=== PATIENT | female | born 1950 | race Caucasian/White ===

== ENCOUNTER 2017-11-10 17:30 | Outpatient (CLI) | payer MEDICARE | END 2017-11-10 17:31 | disposition home or self-care (01) | LOC: SLEEPLAB 17:30 | PROVIDERS: ATTEND Nurse Practitioner Family | DX: G47.33 Obstructive sleep apnea (adult) (pediatric) (principal); R53.83 Other fatigue; R09.89 Other specified symptoms and signs involving the circulatory and respiratory systems; E66.9 Obesity, unspecified; K21.9 Gastro-esophageal reflux disease without esophagitis; J44.9 Chronic obstructive pulmonary disease, unspecified; I10 Essential (primary) hypertension; I25.10 Atherosclerotic heart disease of native coronary artery without angina pectoris; E11.9 Type 2 diabetes mellitus without complications; F32.9 Major depressive disorder, single episode, unspecified; F41.9 Anxiety disorder, unspecified; R09.02 Hypoxemia | CPT/HCPCS: 95806 ==

== ENCOUNTER 2018-02-04 10:33 | Outpatient (CLI) | payer MEDICARE | END 2018-02-04 10:34 | disposition home or self-care (01) | LOC: BICMAMMO 10:33 | PROVIDERS: ATTEND Nurse Practitioner Family | DX: Z78.0 Asymptomatic menopausal state (principal); E55.9 Vitamin D deficiency, unspecified | CPT/HCPCS: 77080 ==

== ENCOUNTER 2018-02-15 13:20 | Outpatient (CLI) | payer MEDICARE ==
--- NOTE | 2018-02-15 14:25 | CT ---
HIGH RESOLUTION CT PULMONARY LUNG SCAN: Date: 02/15/18 HISTORY: Personal history of nicotine dependence. Patient has been a smoker for 50+ years. History of COPD. Cu rrently complaining of shortness of breath. COMPARISON: 02/11/13. FINDINGS: There is a 3.0 mm pleural based nodular density seen adjacent to the mediastinum in the lower aspect of the right upper lobe. This was present on the prior study in 2013, suggesting a benign finding. There is a 5.0 mm pleural based pulmonary nodule, superior segment of the right lower lobe. This area is not well seen due to atelectasis on prior exam. There is a pleural based nodular density with associated linear density seen within the lateral aspec t of the left lower lobe. Findings are likely related to a focal area of pleural thickening and assoc iated parenchymal scarring. There are remote healed left-sided rib fractures present. There is also a nonunion remote fracture in volving the body of the scapula. No additional discrete pulmonary nodule, mass, or pleural effusion is seen. Mild emphysematous changes are seen within the upper lobes bilaterally. Vascular calcifications are seen in the coronary arteries, as well as involving the thoracic aorta. The previously noted subcutaneous emphysema on prior study, as well as left-sided pneumothorax, are n ot visualized. No other interval change. IMPRESSION: 1. Lung-RADS Category 2. Pleural based nodules in the right upper lobe and right lower lobe, one of which is stable compared to study of 2013, suggesting benign finding. Continued annual low dose scree lexi with CT chest in 12 months. 2. Lung-RADS Category S. Remote left-sided rib fractures with small area of pleural and parenchymal scarring left lower lobe. 3. Lung-RADS Category S. 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 Postsurgic al changes of the cervical spine and lumbar spine are partially imaged. 4. Lung-RADS Category S. Mild COPD. POS: [facility]
== END 2018-02-15 13:21 | disposition home or self-care (01) ==
LOC: CT 13:20
PROVIDERS: ATTEND Nurse Practitioner Family
DX: F17.210 Nicotine dependence, cigarettes, uncomplicated (principal); R91.8 Other nonspecific abnormal finding of lung field
CPT/HCPCS: G0297

== ENCOUNTER 2018-04-14 12:42 | Outpatient (CLI) | payer MEDICARE ==
[2018-04-14 14:19] LABS: Actual Bicarbonate (HCO3a) 23.2 mEq/L (22-26); Base Excess (BEa) 0.7 mEq/L (0 (+/-) 2.5); CO2 Tension 36.3 mmHg (35.0-45.0); Hematocrit-ABG 45.9 % (36.0-47.0); Hemoglobin (Hb) 14.1 g/dL (12.0-16.0); pH, Arterial 7.42 (7.35-7.45)
[2018-04-14 14:21] LABS: Calcium, Ionized 1.3 mmol/L (1.12-1.30)
[2018-04-14 14:22] LABS: ALV-art Gradient 24.355 (0-20); Analyzer IN Cardio OR; Puncture Site RR
== END 2018-04-14 12:43 | disposition home or self-care (01) ==
LOC: CP 12:42
PROVIDERS: ATTEND Internal Medicine
DX: J44.9 Chronic obstructive pulmonary disease, unspecified (principal); R09.02 Hypoxemia
CPT/HCPCS: 82805; 94060; 94727; 94729

== ENCOUNTER 2018-06-24 13:37 | Outpatient (CLI) | payer MEDICARE | END 2018-06-24 13:38 | disposition home or self-care (01) | LOC: BICMAMMO 13:37 | PROVIDERS: ATTEND Nurse Practitioner Family | DX: Z12.31 Encounter for screening mammogram for malignant neoplasm of breast (principal); R92.1 Mammographic calcification found on diagnostic imaging of breast; Z80.3 Family history of malignant neoplasm of breast | CPT/HCPCS: 77063; 77067 ==

== ENCOUNTER 2018-10-14 07:49 | Outpatient (CLI) | payer MEDICARE ==
[2018-10-14] MEDS ORDERED: ISOVUE-370 76%-LOCM 1 ML ONE (12:29)
--- NOTE | 2018-10-14 13:04 | CT ---
CT ABDOMEN AND PELVIS WITH IV CONTRAST: Date: 10/14/18 PROVIDED CLINICAL HISTORY: Upper abdominal pain. FINDINGS: Comparison is made with the study dated 02/11/13. The visualized lung bases are free of significant opacity. There is prominent diffuse fatty infiltration of the liver. The spleen, pancreas, kidneys, and adrena l glands demonstrate an unremarkable CT appearance. There is prominent sigmoid diverticulosis. There is mural prominence involving the sigmoid colon in t he mid portion. There is no bowel dilatation, inflammatory fat stranding, free fluid, or lymph node e nlargement apparent. Prominent vascular calcification is seen involving the abdominal aorta. The abdo minerva aorta is ectatic without aneurysm. The osseous structures demonstrate no concerning lytic or blastic lesions. Postoperative changes invo lving the lower lumbar spine are seen. IMPRESSION: 1. Prominence of the colonic wall in the region of the mid sigmoid. This could be on the basis of di verticulosis and nondistention. Correlation with screening colonoscopy suggested. 2. Diffuse fatty infiltration of the liver. 3. Atherosclerosis. POS: [facility]
== END 2018-10-14 07:50 | disposition home or self-care (01) ==
LOC: BICCT 07:49
PROVIDERS: ATTEND Nurse Practitioner Family
DX: E11.65 Type 2 diabetes mellitus with hyperglycemia (principal); I10 Essential (primary) hypertension; R10.10 Upper abdominal pain, unspecified; R91.8 Other nonspecific abnormal finding of lung field; I70.0 Atherosclerosis of aorta; K76.0 Fatty (change of) liver, not elsewhere classified
CPT/HCPCS: 74177

== ENCOUNTER 2018-12-13 11:48 | Outpatient (CLI) | payer MEDICARE ==
--- NOTE | 2018-12-13 14:54 | CT ---
CT ABDOMEN AND PELVIS WITH IV CONTRAST: INDICATIONS: Severe left lower quadrant abdominal pain. COMPARISON: CT abdomen and pelvis dated 10/14/2018. CT chest, abdomen, and pelvis dated 02/11/2013, performed at [facility]. CONTRAST: Isovue-370 70 mL. FINDINGS: There is wall thickening and pericolonic inflammatory stranding with numerous diverticula involving t he colon, suspicious for diverticulitis. A small amount of free fluid is present within the pelvis. No drainable fluid collection is evident. The small bowel is of normal caliber. Again seen is lucy re fatty infiltration of the liver. The pancreas, adrenal glands, and kidneys are normal appearing. There are moderate to severe calcifications involving the abdominopelvic vasculature, which are simil ar appearing. Mild ectasia of the infrarenal abdominal aorta is stable. Small focal area of scarring and pleural thickening overlying the lateral aspect of the left lower lo be is stable. There is stable post surgical change involving the lumbar spine. There is scattered degenerative jesús nge. There are healed rib deformities involving the posterior left 10th rib. IMPRESSION: 1. Findings most suspicious for noncomplicated diverticulitis. Would recommend appropriate colon sc reening after abatement of the patient's acute symptoms. 2. Stable severe fatty liver. 3. Stable moderate to severe vascular calcification of the abdominal aorta with mild ectasia of the infrarenal abdominal aorta. POS: [facility]
== END 2018-12-13 11:49 | disposition home or self-care (01) ==
LOC: BICCT 11:48
PROVIDERS: ATTEND Nurse Practitioner Family
DX: K57.90 Diverticulosis of intestine, part unspecified, without perforation or abscess without bleeding (principal); K59.01 Slow transit constipation; R10.32 Left lower quadrant pain; K76.0 Fatty (change of) liver, not elsewhere classified; I70.0 Atherosclerosis of aorta; I77.811 Abdominal aortic ectasia
CPT/HCPCS: 74177; 82565

== ENCOUNTER 2019-01-31 13:39 | Outpatient (CLI) | payer MEDICARE ==
--- NOTE | 2019-01-31 15:20 | RAD ---
LUMBAR SPINE THREE VIEWS: HISTORY: Post laminectomy syndrome. COMPARISON: 07/23/2017 FINDINGS: Postop changes and metallic hardware are again seen. Minimal anterolisthesis of L4 over L5 is presen t, without change in alignment on flexion or extension. Metallic hardware appears intact. The intra diskal prosthesis at the L3-L4 level is unchanged. POS: [facility]
== END 2019-01-31 13:40 | disposition home or self-care (01) ==
LOC: RAD 13:39
PROVIDERS: ATTEND Nurse Practitioner Family
DX: M96.1 Postlaminectomy syndrome, not elsewhere classified (principal)
CPT/HCPCS: 72100

== ENCOUNTER 2019-02-17 09:48 | Outpatient (CLI) | payer MEDICARE ==
--- NOTE | 2019-02-17 12:35 | MRI ---
MRI LUMBAR SPINE WITHOUT CONTRAST: INDICATIONS: Post laminectomy syndrome. Low back pain with radiation to both legs. CORRELATION: Lumbar spine films from 01/31/2019, which show pedicle screws at L3-L4 with interbody implant and ped icle screws at S1 with loss of disk space at L5-S1. CT lumbar spine from 11/05/2016. TECHNIQUE: Multiplanar, multisequential imaging of the lumbar spine obtained. FINDINGS: The lumbar vertebrae maintain height. There is disk space narrowing at L3-L4. There is complete los s of disk space at L5-S1 with evidence of interbody fusion. Pedicle screws are seen on the left, at L3 and L4, and there are bilateral pedicle screws at S1. The pedicle screws on the left, at L3-L4, obscure the lateral recess within the canal. Blooming jim fact from the screws make evaluation of the pedicle position on the MRI suboptimal. CT could better define the pedicle screw position, if indicated. At L1-L2, no significant disk bulge. Mild facet arthrosis. No central canal or foraminal stenosis. At L2-L3, there is a broad-based bulge with evidence of disk protrusion centrally. There is a small extruded disk, which exhibits superior migration. At the disk space, there is flattening the thecal sac, combined with facet and ligamentous hypertrophy and posterior epidural fat, resulting in mild to moderate central canal stenosis. Small disk migration superiorly, above the disk space, along the p osterior margin of L2, is noted, mildly flattening the anterior thecal sac, to the left of midline. Left foraminal stenosis at L2-L3 due to asymmetric disk bulge and facet hypertrophy into the foramina . At L3-L4, there is slight posterior listhesis, which was also noted on prior CT. Loss of disk space, as noted above. Diffuse disk bulge flattens the anterior thecal sac. Facet and ligamentous hypertr ophy of the posterior epidural fat results in mild central canal stenosis. There is left foraminal n arrowing secondary to hypertrophic change. At L4-L5, there is mild disk bulge, facet and ligamentous hypertrophy and posterior epidural fat. No evidence of significant central canal or foraminal stenosis. At L5-S1, there is loss of disk space with interbody fusion. There is no central canal or foraminal stenosis. IMPRESSION: 1. Disk protrusion at L2-L3, as described above. 2. Postoperative and degenerative disk changes at multiple levels, as described. POS: [facility]
== END 2019-02-17 09:49 | disposition home or self-care (01) ==
LOC: BICMRI 09:48
PROVIDERS: ATTEND Nurse Practitioner Family
DX: M96.1 Postlaminectomy syndrome, not elsewhere classified (principal); M51.26 Other intervertebral disc displacement, lumbar region; M47.816 Spondylosis without myelopathy or radiculopathy, lumbar region; Z98.1 Arthrodesis status
CPT/HCPCS: 72148

== ENCOUNTER 2019-07-25 07:07 | Day surgery (SDC) | payer MEDICARE ==
[2019-07-24 17:45] VITALS: BMI 37.8
--- NOTE | 2019-07-25 09:01 | RAD ---
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 Stable screw traversing the posterior elements of L5 and S1. There has been interval placement of a disc prosthesis at L3-L4. There are five lumbar type vertebral bodi es. No fracture. Atherosclerosis of the aorta is noted. Successful lumbar puncture for lumbar myelogram. A total of 8 cc of Isovue-M 200 contrast was admini stered intrathecally. No immediate or postprocedure complications. TECHNIQUE: Consent obtained to perform a lumbar puncture for lumbar myelogram. The patient's back was evaluated . The L1-L2 level was deemed appropriate. The skin was prepped and draped in a sterile fashion. Lidocaine 1% buffered with sodium bicarbonate was used for local anesthesia. Under fluoroscopic guid ance, a 22-gauge spinal needle was advanced into the CSF space. Via a short tubing catheter, a total of 8 cc of Isovue-M 200 contrast was administered intrathecally. No immediate or post procedur al complications. IMPRESSION: Successful lumbar puncture for lumbar myelogram. Please refer to separate post myelogram CT report f or further detail. Transcribed Date/Time: 07/25/2019 9:12 AM
--- NOTE | 2019-07-25 09:43 | CT ---
CT LUMBAR SPINE WITH CONTRAST: CT LUMBAR MYELOGRAM: INDICATIONS: Low back pain. COMPARISON: 11/05/2016 FINDINGS: The numbering system of the prior exam will be utilized for the purposes of the numbering system on t his exam. There is left pedicle screw fixation of L3 and L4, with intervening vertical rods and a left-sided di sk space prosthesis. There is a left pedicle screw of S1 and redemonstration of fusion of the L5-S1 disk space. Trace retrolisthesis of L3 on L4 is again demonstrated. Incidental note of right subarticular disk protrusion at T10-T11 with mild effacement of the right ve ntral hemicord as well as crowding of the traversing right nerve root. No significant central canal stenosis at the thoracolumbar junction. L1-L2: There is no high-grade central canal or neural foraminal stenosis. L2-L3: Disk degeneration with gas vacuum phenomenon present. There is mild to moderate left subarti cular stenosis due to an asymmetric left disk osteophyte. Mild to moderate left neural foraminal monica rowing is present. There is mild narrowing of the right neural foramen. L3-L4: Mild central canal stenosis due to disk osteophyte and retrolisthesis. There is mild to mode rate right and mild left neural foraminal narrowing. There is gas vacuum phenomenon of the postopera tive disk space. L4-L5: Broad-based disk osteophyte with moderate narrowing of the central canal and crowding of the bilateral traversing L5 nerve roots. No high-grade left foraminal stenosis. Minimal narrowing of th e right neural foramen is present. L5-S1: No high-grade compromise of the terminal thecal sac. There is moderate osseous compromise of each neural foramen. Mild right convexity curvature of the lumbar spine is present. There is multilevel bilateral facet o steoarthritis, greatest on the right and most pronounced inferiorly. Incidental note of hepatic steatosis. 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 IMPRESSION: 1. Multilevel degenerative change of the postoperative spine, as outlined above. 2. Incidental note of right subarticular disk protrusion at T10-T11 with associated ventral cord fla ttening and compromise of traversing right nerve roots.
[2019-07-25] MEDS ORDERED: Iopamidol-M 200 41% 20 ML VIAL ONE (10:39)
== END 2019-07-25 09:35 | disposition home or self-care (01) ==
LOC: RAD 07:07
PROVIDERS: ATTEND Neurological Surgery
DX: M48.061 Spinal stenosis, lumbar region without neurogenic claudication (principal); M54.16 Radiculopathy, lumbar region; I70.0 Atherosclerosis of aorta; I10 Essential (primary) hypertension; E11.9 Type 2 diabetes mellitus without complications; E78.5 Hyperlipidemia, unspecified; F17.210 Nicotine dependence, cigarettes, uncomplicated; F43.10 Post-traumatic stress disorder, unspecified; F32.9 Major depressive disorder, single episode, unspecified; K21.9 Gastro-esophageal reflux disease without esophagitis; K57.92 Diverticulitis of intestine, part unspecified, without perforation or abscess without bleeding; C53.9 Malignant neoplasm of cervix uteri, unspecified; Z88.0 Allergy status to penicillin; Z88.5 Allergy status to narcotic agent; Z79.82 Long term (current) use of aspirin; Z79.84 Long term (current) use of oral hypoglycemic drugs; Z79.899 Other long term (current) drug therapy
CPT/HCPCS: 62304; 72132; Q9966

== ENCOUNTER → 2019-09-07 | Day surgery (SDC) | payer MEDICARE ==
[2019-09-06 08:57] VITALS: BMI 34.0
[~2019-09-07] MED LIST: Clindamycin/D5W 900 mg/50 ml Premix Bag ONE; Levofloxacin 500 mg/D5W 100 ml Premix Bag ONE; Sodium Chloride 0.9% 10 ML ONE
[2019-09-07 06:37] LABS: #Basophils 0.1 thou/uL (0.0-0.2); #Eosinphils 0.3 thou/uL (0.0-0.7); #Lymphocytes 2.6 thou/uL (1.20-3.40); #Monocytes 0.5 thou/uL (0.11-0.59); #Neutrophils 4.6 thou/uL (1.40-6.50); %Basophils 1.6 % (0.0-1.0); %Eosinophils 3.5 % (0.0-10.0); %Lymphocytes 32.4 % (21.0-51.0); %Neutrophils 56.6 % (42.0-75.0); Hemoglobin 14.7 g/dL (12.0-16.0); Mean Corpuscular HGB CONC 33.3 g/dL (32.0-36.0); Mean Corpuscular Hemoglobin 29.6 pg (27.0-31.0); Mean Corpuscular Volume 88.6 fL (78.0-98.0); Mean Platelet Volume 7.7 fL (7.4-10.4); Platelet Count 293 thou/uL (130-400); RBC Distribution Width 13.1 % (11.5-14.5); Red Blood Cell (RBC) Count 4.97 mill/uL (4.20-5.40); White Blood Cell (WBC) Count 8.1 thou/uL (4.8-10.8)
[2019-09-07 06:49] LABS: Anion Gap 12 mmol/L (10-20); BUN (Urea Nitrogen) 18 mg/dL (9.8-20.1); Calc. Creatinine Clearance 103 mL/min (70-130); Calcium 9.9 mg/dL (7.8-10.44); Carbon Dioxide 26 mmol/L (23-31); Chloride 101 mmol/L (98-107); Estimated GFR-MDRD 65; Glucose 184 mg/dL (80-115); Sodium 135 mmol/L (136-145)
--- NOTE | 2019-09-07 23:45 | EKG ---
Test Reason : PREOP Blood Pressure : / mmHG Vent. Rate : 074 BPM Atrial Rate : 074 BPM P-R Int : 170 ms QRS Dur : 094 ms QT Int : 376 ms P-R-T Axes : 062 034 055 degrees QTc Int : 417 ms Normal sinus rhythm Normal ECG When compared with ECG of 28-JUN-2017 14:25, No significant change was found Confirmed by Rajwinder THOMPSON ([id number]) on 09/07/2019 11:45:45 PM Referred By: WILBERT Confirmed By:Rajwinder THOMPSON
== END ==
LOC: SDC 05:49
PROVIDERS: ATTEND Neurological Surgery
DX: M54.16 Radiculopathy, lumbar region (principal); Z53.09 Procedure and treatment not carried out because of other contraindication
CPT/HCPCS: 36415; 80048; 85025; 93005; 93010; J1956; J3370; J3490; J7620

== ENCOUNTER 2019-09-25 07:48 | Inpatient (IN) | payer MEDICARE ==
[2019-09-25] MEDS ORDERED: Levofloxacin 500 mg/D5W 100 ml Premix Bag ONE (08:38)
[2019-09-25] MEDS ORDERED: Clindamycin/D5W 900 mg/50 ml Premix Bag ONE (08:38)
[2019-09-25 09:01] LABS: #Basophils 0.1 thou/uL (0.0-0.2); #Eosinphils 0.2 thou/uL (0.0-0.7); #Lymphocytes 2.9 thou/uL (1.20-3.40); #Monocytes 0.3 thou/uL (0.11-0.59); #Neutrophils 4.4 thou/uL (1.40-6.50); %Lymphocytes 36.7 % (21.0-51.0); %Monocytes 4.2 % (0.0-10.0); %Neutrophils 55.1 % (42.0-75.0); Hemoglobin 14.9 g/dL (12.0-16.0); Mean Corpuscular Hemoglobin 28.2 pg (27.0-31.0); Mean Corpuscular Volume 88.1 fL (78.0-98.0); Mean Platelet Volume 7.8 fL (7.4-10.4); Platelet Count 283 thou/uL (130-400); RBC Distribution Width 13.1 % (11.5-14.5); Red Blood Cell (RBC) Count 5.29 mill/uL (4.20-5.40)
[2019-09-25 09:15] LABS: Anion Gap 16 mmol/L (10-20); BUN (Urea Nitrogen) 17 mg/dL (9.8-20.1); Calc. Creatinine Clearance 103 mL/min (70-130); Carbon Dioxide 24 mmol/L (23-31); Chloride 101 mmol/L (98-107); Estimated GFR-MDRD 63; Glucose 174 mg/dL (80-115); Potassium 4.1 mmol/L (3.5-5.1); Sodium 137 mmol/L (136-145)
[2019-09-25] MEDS ORDERED: Fentanyl 100 MCG/2 ML VIAL ONE ×4 (10:34→17:03)
[2019-09-25] MEDS ORDERED: Lidocaine 2% Jelly 5 ML TUBE ONE (10:34)
[2019-09-25] MEDS ORDERED: Sodium Chloride 0.9% 10 ML ONE (10:37)
[2019-09-25] MEDS ORDERED: Promethazine HCl 25 MG/ML VIAL IM PRN ×2 (12:28→13:24)
[2019-09-25] MEDS ORDERED: Promethazine HCl 25 MG/ML VIAL SLOW IVP PRN (12:28)
[2019-09-25] MEDS ORDERED: Ondansetron HCl/PF 4 MG/2 ML Vial IVP PRN (12:28)
[2019-09-25] MEDS ORDERED: Morphine 4 MG/ML VIAL SLOW IVP PRN (13:24)
[2019-09-25] MEDS ORDERED: Bisacodyl 10 MG SUPP PR PRN (13:24)
[2019-09-25] MEDS ORDERED: Mag-Al 1200 mg/1200 mg/30 ML UDCUP PO PRN (13:24)
[2019-09-25] MEDS ORDERED: Promethazine 25 MG TAB PO PRN (13:24)
[2019-09-25] MEDS ORDERED: traMADol HCl 50 MG TAB PO PRN ×2 (13:24)
[2019-09-25] MEDS ORDERED: Sodium Chloride 0.9% 1,000 ML IV SCH (13:24)
[2019-09-25] MEDS ORDERED: diphenhydrAMINE 50 MG/ML VIAL IVP PRN (13:24)
[2019-09-25] MEDS ORDERED: HYDROcodone/Acetaminophen 10/325 mg Tablet PO PRN ×2 (13:24)
[2019-09-25] MEDS ORDERED: diphenhydrAMINE 25 MG CAP PO PRN (13:24)
[2019-09-25] MEDS ORDERED: Milk Of Magnesia 30 ML UDCUP PO PRN (13:24)
[2019-09-25] MEDS ORDERED: tiZANidine HCl 4 MG TAB PO PRN (13:24)
[2019-09-25] MEDS ORDERED: Promethazine HCl 12.5 MG SUPP PR PRN (13:24)
[2019-09-25] MEDS ORDERED: Ondansetron PF 4 MG/2 ML Vial IVP PRN (13:25)
[2019-09-25] MEDS ORDERED: Morphine 2 MG/ML SYRINGE SLOW IVP PRN (13:45)
[2019-09-25] MEDS ORDERED: CEFAZOLIN 2 GM in Premix Bag 1 BAG IVPB SCH (14:00)
[2019-09-25] MEDS ORDERED: Morphine 4 MG/ML VIAL ONE (14:57)
[2019-09-25] MEDS ORDERED: Lidocaine 1% PF 5 ML VIAL ONE (15:51)
[2019-09-25] MEDS ORDERED: Glycopyrrolate 0.2 MG/ML 5 ML SYRINGE ONE (15:51)
[2019-09-25] MEDS ORDERED: Rocuronium Bromide 10 MG/ML (10ML VIAL) ONE (15:51)
[2019-09-25] MEDS ORDERED: PROPOFOL 200 MG/20 ML VIAL ONE (15:51)
[2019-09-25] MEDS ORDERED: Ketorolac Tromethamine 30 MG/ML VIAL ONE (15:51)
[2019-09-25] MEDS ORDERED: Ondansetron PF 4 MG/2 ML Vial ONE (15:51)
[2019-09-25] MEDS ORDERED: ePHEDrine 50 MG/ML VIAL ONE (15:51)
[2019-09-25] MEDS ORDERED: traMADol HCl 50 MG TAB ONE (15:55)
[2019-09-25] MEDS ORDERED: Clindamycin/D5W 900 MG in Premix Bag 1 BAG IVPB SCH (17:00)
[2019-09-25] MEDS ORDERED: HYDROcodone/Acetaminophen 10/325 mg Tablet ONE (17:13)
--- NOTE | 2019-09-25 17:33 | OP ---
DATE OF PROCEDURE: 09/25/2019 CREATIVE MANAGER: Marvin. PROCEDURE PERFORMED: Removal of hardware, L3-L4; exploration of spinal fusion, L3-L4; posterior laminectomy, L2-L3; pedicle screw instrumentation, L2-L3; demineralized bone matrix posterolateral arthrodesis, local morselized autograft, L2-L3. DESCRIPTION OF PROCEDURE: The patient was brought to the operating room and intubated. She was rolled in a prone position on gel-filled chest rolls. The previous incision was reopened, extended superiorly exposing L2 through L4. We removed the prior nuts and rods, explored the spinal fusion at L3-L4 and could not be convinced that it was solid. We next explored the L2-L3 region, performed a modest laminectomy and then placed a left L2 pedicle screw with lateral fluoroscopic guidance. The heidi was then secured from L2 through L3 and L4, connected by nuts, which were final tightened. The wound was then extensively irrigated and MAC hemostasis was secured. A combination of demineralized bone matrix and local morselized autograft was laid over the lamina and posterolateral surfaces for the purpose of arthrodesis. Vancomycin powder was applied and the wound was then closed in anatomic layers. Job ID: [id number]
[2019-09-25] MEDS: Clindamycin/D5W 900 MG in Premix Bag 1 BAG IVPB SCH (20:32)
[2019-09-25 20:44] VITALS: BMI 36.0
[2019-09-26] MEDS: Clindamycin/D5W 900 MG in Premix Bag 1 BAG IVPB SCH (04:09)
[2019-09-26] MEDS ORDERED: Levothyroxine Sodium 88 MCG TAB PO SCH (06:00)
[2019-09-26] MEDS: PARoxetine 20 MG TAB PO SCH ×2 (08:44→08:46)
[2019-09-26] MEDS ORDERED: Fenofibrate Nanocrystallized 145 MG TAB PO SCH (09:00)
[2019-09-26] MEDS ORDERED: Prevnar 13-Val Conj/PF 0.5 ML SYRINGE IM ONE (09:00)
[2019-09-26] MEDS ORDERED: Gabapentin 300 MG CAP PO SCH (09:00)
[2019-09-26] MEDS ORDERED: Allopurinol 100 MG TAB PO SCH (09:00)
[2019-09-26] MEDS ORDERED: Metoprolol Tartrate 50 MG TAB PO SCH (09:00)
[2019-09-26] MEDS ORDERED: oxyCODONE/Acetaminophen 5 mg/325 mg Tablet PO SCH (09:00)
[2019-09-26] MEDS ORDERED: FLU VACC TS2019-20(65YR UP)/PF 180 MCG/0.5 ML SYRINGE IM ONE (09:00)
[2019-09-26 09:23] VITALS: BP 131/75; TEMP 97.6
--- NOTE | 2019-09-26 16:25 | DIS ---
DATE OF ADMISSION: 09/25/2019 DATE OF DISCHARGE: 09/26/2019 The patient is a 69-year-old female, recently evaluated in our office for increased back and left leg pain, who underwent removal of hardware and extension of her lumbar fusion to L2-L3 on 09/25/2019. Following the surgery, she was transitioned to the floor, where her pain has been well-controlled with p.o. medications, she is tolerating a regular diet, and she is voiding appropriately. She reports minimal pain at this time. She has been ambulating easily up and down the halls. We will plan to dismiss the patient to home. I have discussed home care precautions, and we will follow up with her in 2 weeks. Job ID: [id number]
[2019-09-26] MEDS ORDERED: Rosuvastatin 10 MG TAB PO SCH (21:00)
[2019-09-26] MEDS ORDERED: METFORMIN 750 MG PO SCH (21:00)
[2019-10-09] MEDS ORDERED: Aspirin 81 mg Enteric Coated Tablet PO SCH (09:00)
== END 2019-09-26 11:04 | disposition home or self-care (01) | DRG 460 ==
LOC: SURG A 07:48 → EDSTATUS 15:13 → ONC 18:07
PROVIDERS: ADMIT Neurological Surgery; ATTEND Neurological Surgery
PROC: 0SG0071 Fusion of Lumbar Vertebral Joint with Autologous Tissue Substitute, Posterior Approach, Posterior Column, Open Approach (ICD-10-PCS; principal; 2019-09-25)
PROC: 0SP004Z Removal of Internal Fixation Device from Lumbar Vertebral Joint, Open Approach (ICD-10-PCS; 2019-09-25)
DX: M47.896 Other spondylosis, lumbar region (principal); E11.9 Type 2 diabetes mellitus without complications; I10 Essential (primary) hypertension; E78.5 Hyperlipidemia, unspecified; J45.909 Unspecified asthma, uncomplicated; Z90.710 Acquired absence of both cervix and uterus; Z88.0 Allergy status to penicillin; Z88.8 Allergy status to other drugs, medicaments and biological substances
CPT/HCPCS: 76000; 80048; 85025; 90471; 90662; 90670; C1713; C1768; G0008; G0009; J0131; J1956; J2270; J3010; J3370; J3490

== ENCOUNTER 2019-10-17 15:33 | Outpatient (CLI) | payer MEDICARE ==
--- NOTE | 2019-10-17 16:09 | RAD ---
Time: 2 views lumbar spine COMPARISON: 01/31/2019 HISTORY: Lumbar radiculopathy. Back surgery 2-3 weeks ago FINDINGS: Midline skin connor. Unilateral left-sided transpedicular screws at L2, L3 and L4. Additio nal screws are noted at the S1 level, unchanged. Stable alignment of the lumbar spine with grade 1 anterolisthesis of L4 upon L5. Stable atherosclerosis IMPRESSION: Findings compatible with lumbar fusion
== END 2019-10-17 15:34 | disposition home or self-care (01) ==
LOC: TBSIIMAG 15:33
PROVIDERS: ATTEND Neurological Surgery
DX: M54.16 Radiculopathy, lumbar region (principal); Z98.1 Arthrodesis status
CPT/HCPCS: 72100

== ENCOUNTER 2019-12-05 14:49 | Outpatient (CLI) | payer MEDICARE ==
--- NOTE | 2019-12-05 15:07 | RAD ---
EXAM: XR Lumbar Spine 2 Or 3 View PROVIDED CLINICAL HISTORY: Postop COMPARISON: 10/17/2019 FINDINGS: Interval removal of cutaneous connor. Additional significant interval change with respect to the chris or examination is not apparent. IMPRESSION: As above.
== END 2019-12-05 14:50 | disposition home or self-care (01) ==
LOC: TBSIIMAG 14:49
PROVIDERS: ATTEND Neurological Surgery
DX: M54.5 Low back pain (principal)
CPT/HCPCS: 72100

== ENCOUNTER 2021-02-12 10:57 | Outpatient (CLI) | payer MEDICARE | END 2021-02-12 10:58 | disposition home or self-care (01) | LOC: BICMAMMO 10:57 | PROVIDERS: ATTEND Nurse Practitioner Family | DX: Z12.31 Encounter for screening mammogram for malignant neoplasm of breast (principal) | CPT/HCPCS: 77063; 77067 ==

== ENCOUNTER 2021-03-04 13:17 | Outpatient (CLI) | payer MEDICARE | END 2021-03-04 13:18 | disposition home or self-care (01) | LOC: BICRAD 13:17 | PROVIDERS: ATTEND Nurse Practitioner Family | DX: M25.552 Pain in left hip (principal); M43.16 Spondylolisthesis, lumbar region; M47.816 Spondylosis without myelopathy or radiculopathy, lumbar region; G95.89 Other specified diseases of spinal cord; Z98.1 Arthrodesis status | CPT/HCPCS: 72110 ==

== ENCOUNTER 2021-03-12 07:00 | Outpatient (CLI) | payer MEDICARE ==
[2021-03-10 13:06] VITALS: BMI 36.9
[2021-03-12 08:03] VITALS: BP 139/94; TEMP 97.6
== END 2021-03-12 09:55 | disposition home or self-care (01) ==
LOC: RAD 07:00
PROVIDERS: ATTEND Nurse Practitioner Family
DX: M43.16 Spondylolisthesis, lumbar region (principal); M48.061 Spinal stenosis, lumbar region without neurogenic claudication; M47.816 Spondylosis without myelopathy or radiculopathy, lumbar region; Z98.1 Arthrodesis status
CPT/HCPCS: 62304; 72132

== ENCOUNTER 2021-04-01 08:23 | Outpatient (CLI) | payer MEDICARE | END 2021-04-01 08:24 | disposition home or self-care (01) | LOC: BICULT 08:23 | PROVIDERS: ATTEND Nurse Practitioner Family | DX: I71.4 Abdominal aortic aneurysm, without rupture (principal) | CPT/HCPCS: 76775 ==

== ENCOUNTER 2022-05-13 07:06 | Day surgery (SDC) | payer MEDICARE ==
[2022-05-11 16:00] VITALS: BMI 37.2
[2022-05-13 07:50] VITALS: TEMP 97.8
[2022-05-13 12:32] VITALS: BP 155/102
== END 2022-05-13 09:45 | disposition home or self-care (01) ==
LOC: RAD 07:06
PROVIDERS: ATTEND Neurological Surgery
PROC: B01B1ZZ Fluoroscopy of Spinal Cord using Low Osmolar Contrast (ICD-10-PCS; principal; 2022-05-13)
DX: M47.26 Other spondylosis with radiculopathy, lumbar region (principal); M48.062 Spinal stenosis, lumbar region with neurogenic claudication; M43.16 Spondylolisthesis, lumbar region; I71.4 Abdominal aortic aneurysm, without rupture; M47.815 Spondylosis without myelopathy or radiculopathy, thoracolumbar region; M47.817 Spondylosis without myelopathy or radiculopathy, lumbosacral region; M48.07 Spinal stenosis, lumbosacral region; M51.24 Other intervertebral disc displacement, thoracic region; M48.04 Spinal stenosis, thoracic region; Z79.82 Long term (current) use of aspirin; Z79.84 Long term (current) use of oral hypoglycemic drugs; Z79.890 Hormone replacement therapy; Z79.899 Other long term (current) drug therapy; Z88.0 Allergy status to penicillin; Z88.5 Allergy status to narcotic agent; Z98.1 Arthrodesis status
CPT/HCPCS: 62304; 72132

== ENCOUNTER 2022-06-24 14:00 | Inpatient (IN) | payer MEDICARE ==
[2022-06-29] MEDS ORDERED: Levofloxacin 500 mg/D5W 100 ml Premix Bag ONE (06:46)
[2022-06-29] MEDS ORDERED: fentaNYL Citrate/PF 100 MCG/2 ML SYRINGE ONE (06:56)
[2022-06-29] MEDS ORDERED: Promethazine HCl 25 MG/ML VIAL IM PRN ×2 (07:02→07:19)
[2022-06-29] MEDS ORDERED: Ondansetron PF 4 MG/2 ML Vial IVP PRN (07:02)
[2022-06-29] MEDS ORDERED: diphenhydrAMINE 50 MG/ML VIAL IVP PRN (07:02)
[2022-06-29] MEDS ORDERED: Mag-Al 1200 mg/1200 mg/30 ML UDCUP PO PRN (07:02)
[2022-06-29] MEDS ORDERED: traMADol HCl 50 MG TAB PO PRN (07:02)
[2022-06-29] MEDS ORDERED: Morphine 2 MG/ML VIAL SLOW IVP PRN (07:02)
[2022-06-29] MEDS ORDERED: Promethazine 25 MG TAB PO PRN (07:02)
[2022-06-29] MEDS ORDERED: tiZANidine HCl 4 MG TAB PO PRN (07:05)
[2022-06-29] MEDS ORDERED: Albuterol Sulfate 1.25 MG/3 ML NEB NEB PRN (07:05)
[2022-06-29] MEDS ORDERED: Dextrose 50% Abboject 50 ML SYRINGE SLOW IVP PRN (07:08)
[2022-06-29] MEDS ORDERED: Dextrose 5% in Water 1,000 ML IV PRN (07:08)
[2022-06-29] MEDS ORDERED: Dexamethasone 20 MG/5 ML VIAL ONE (07:15)
[2022-06-29] MEDS ORDERED: PROPOFOL 200 MG/20 ML VIAL ONE (07:15)
[2022-06-29] MEDS ORDERED: Rocuronium Bromide 10 MG/ML (10ML VIAL) ONE (07:15)
[2022-06-29] MEDS ORDERED: ePHEDrine 50 MG/ML VIAL ONE (07:15)
[2022-06-29] MEDS ORDERED: Ondansetron PF 4 MG/2 ML Vial ONE (07:15)
[2022-06-29] MEDS ORDERED: Lidocaine 1% PF 5 ML VIAL ONE (07:15)
[2022-06-29] MEDS ORDERED: Meperidine HCl/PF 25 MG/ML VIAL SLOW IVP PRN (07:19)
[2022-06-29] MEDS ORDERED: Promethazine HCl 25 MG/ML VIAL IVPB PRN (07:19)
[2022-06-29] MEDS ORDERED: HYDROmorphone 2 MG/ML VIAL SLOW IVP PRN (07:19)
[2022-06-29] MEDS ORDERED: Ondansetron HCl/PF 4 MG/2 ML Vial IVP PRN (07:19)
[2022-06-29] MEDS ORDERED: Clindamycin/D5W 900 mg/50 ml Premix Bag ONE (07:20)
[2022-06-29] MEDS ORDERED: Midazolam HCl 2 mg/ml Syrup 5 ml UD Cup ONE (07:21)
[2022-06-29] MEDS ORDERED: Scopolamine 1.5 mg/72 hour Patch ONE (07:21)
[2022-06-29] MEDS ORDERED: Midazolam HCl 2 mg/2 ml Vial ONE (07:21)
[2022-06-29] MEDS ORDERED: SUGAMMADEX SODIUM 200 MG/2 ML VIAL ONE (08:15)
[2022-06-29] MEDS ORDERED: HYDROmorphone 2 MG/ML VIAL ONE (08:18)
[2022-06-29] MEDS ORDERED: Fentanyl 100 MCG/2 ML VIAL ONE (09:07)
[2022-06-29 12:31] VITALS: BMI 36.7
[2022-06-29] MEDS: Gabapentin 300 MG CAP PO SCH ×4 (12:48→21:25)
[2022-06-29] MEDS: Bupropion 150 MG XL TAB PO SCH (12:48)
[2022-06-29] MEDS: Sodium Chloride 0.9% 1,000 ML IV SCH ×2 (12:48→22:12)
[2022-06-29] MEDS: PARoxetine 20 MG TAB PO SCH (12:48)
[2022-06-29] MEDS: Clindamycin/D5W 900 MG in Premix Bag 1 BAG IVPB SCH ×2 (15:05→23:32)
[2022-06-29] MEDS ORDERED: Nicotine 14 MG PATCH TD PRN (17:55)
[2022-06-29] MEDS ORDERED: METFORMIN 750 MG PO SCH (21:00)
[2022-06-29] MEDS ORDERED: Non-Formulary Item 1 EACH (Metformin Hcl [Metformin Hcl Er] 750 MG Tab.Er.24h) PO SCH (21:00)
[2022-06-29] MEDS: oxyCODONE/Acetaminophen 5 mg/325 mg Tablet PO PRN (21:25)
[2022-06-29] MEDS: HumaLOG 300 UNITS/3 ML VIAL SC PRN (21:34)
[2022-06-30] MEDS ORDERED: Levothyroxine Sodium 88 MCG TAB PO SCH (06:00)
[2022-06-30] MEDS: Gabapentin 300 MG CAP PO SCH (08:06)
[2022-06-30] MEDS: Bupropion 150 MG XL TAB PO SCH (08:06)
[2022-06-30] MEDS: PARoxetine 20 MG TAB PO SCH (08:06)
[2022-06-30] MEDS: oxyCODONE/Acetaminophen 5 mg/325 mg Tablet PO PRN (08:08)
[2022-06-30 08:12] VITALS: BP 146/76; TEMP 98
[2022-06-30] MEDS: Sodium Chloride 0.9% 1,000 ML IV SCH (08:56)
[2022-06-30] MEDS ORDERED: Fenofibrate Nanocrystallized 145 MG TAB PO SCH (09:00)
[2022-06-30] MEDS ORDERED: Rosuvastatin 10 MG TAB PO SCH (09:00)
[2022-06-30] MEDS ORDERED: Cholecalciferol 1,000 UNITS (25 MCG) TAB PO SCH (09:00)
[2022-06-30] MEDS: HumaLOG 300 UNITS/3 ML VIAL SC PRN (09:37)
== END 2022-06-30 10:03 | disposition home or self-care (01) | DRG 460 ==
LOC: SURG A 06-29 05:52 → SURG B 06-29 12:25
PROVIDERS: ADMIT Physician Assistant; ATTEND Neurological Surgery
PROC: 0SG1071 Fusion of 2 or more Lumbar Vertebral Joints with Autologous Tissue Substitute, Posterior Approach, Posterior Column, Open Approach (ICD-10-PCS; principal; 2022-06-29)
PROC: 0QP00JZ Removal of Synthetic Substitute from Lumbar Vertebra, Open Approach (ICD-10-PCS; 2022-06-29)
DX: M54.16 Radiculopathy, lumbar region (principal); Z20.822 Contact with and (suspected) exposure to COVID-19; I10 Essential (primary) hypertension; E78.5 Hyperlipidemia, unspecified; E11.9 Type 2 diabetes mellitus without complications; F17.210 Nicotine dependence, cigarettes, uncomplicated; Z88.5 Allergy status to narcotic agent; Z88.0 Allergy status to penicillin
CPT/HCPCS: 36416; 76000; 94640; C1713; C1768; C1776; J1100; J1170; J1815; J1956; J2250; J2270; J2405; J2704; J3010; J3370; J3490; J7050; J7620

== ENCOUNTER 2022-06-24 14:03 | Outpatient (CLI) | payer MEDICARE ==
[2022-06-24 15:57] LABS: Hemoglobin 14.7 g/dL (12.0-15.5); Mean Corpuscular HGB CONC 32.7 g/dL (32.0-36.0); Mean Corpuscular Volume 88.6 fl (81.6-98.3); Mean Platelet Volume 11.1 fl (7.4-10.4); Platelet Count 295 10x3/uL (150-450); RBC Distribution Width 14.1 % (11.5-14.5); Red Blood Cell (RBC) Count 5.07 10x6/uL (3.90-5.03); White Blood Cell (WBC) Count 9.3 10x3/uL (3.5-10.5)
[2022-06-24 16:14] LABS: Anion Gap 17 mmol/L (10-20); BUN (Urea Nitrogen) 16 mg/dL (9.8-20.1); Calc. Creatinine Clearance 0 mL/min (70-130); Carbon Dioxide 26 mmol/L (23-31); Chloride 102 mmol/L (98-107); Estimated GFR 78; Glucose 257 mg/dL (80-115); Potassium 4.2 mmol/L (3.5-5.1); Sodium 141 mmol/L (136-145)
== END 2022-06-24 14:04 | disposition home or self-care (01) ==
LOC: LABBT 14:03
PROVIDERS: ATTEND Neurological Surgery
DX: Z01.818 Encounter for other preprocedural examination (principal); M54.16 Radiculopathy, lumbar region; Z20.822 Contact with and (suspected) exposure to COVID-19
CPT/HCPCS: 80048; 85027; 87811; 93005; 93010

== ENCOUNTER 2022-07-14 12:53 | Outpatient (CLI) | payer MEDICARE | END 2022-07-14 12:54 | disposition home or self-care (01) | LOC: TBSIIMAG 12:53 | PROVIDERS: ATTEND Neurological Surgery | DX: M47.26 Other spondylosis with radiculopathy, lumbar region (principal); Z98.890 Other specified postprocedural states | CPT/HCPCS: 72100 ==

== ENCOUNTER 2022-12-21 09:53 | Outpatient (CLI) | payer MEDICARE | END 2022-12-21 09:54 | disposition home or self-care (01) | LOC: RAD 09:53 | PROVIDERS: ATTEND Internal Medicine Critical Care Medicine | DX: R06.00 Dyspnea, unspecified (principal) | CPT/HCPCS: 71046 ==

== ENCOUNTER 2023-01-05 14:40 | Outpatient (CLI) | payer MEDICARE | END 2023-01-05 14:41 | disposition home or self-care (01) | LOC: TBSIIMAG 14:40 | PROVIDERS: ATTEND Neurological Surgery | DX: M47.26 Other spondylosis with radiculopathy, lumbar region (principal); I72.8 Aneurysm of other specified arteries; M41.86 Other forms of scoliosis, lumbar region; Z98.890 Other specified postprocedural states | CPT/HCPCS: 72100 ==

== ENCOUNTER 2023-09-24 14:45 | Outpatient (CLI) | payer MEDICARE | END 2023-09-24 14:46 | disposition home or self-care (01) | LOC: ULT 14:45 | PROVIDERS: ATTEND Nurse Practitioner Family | DX: M79.604 Pain in right leg (principal); M79.89 Other specified soft tissue disorders; I70.201 Unspecified atherosclerosis of native arteries of extremities, right leg | CPT/HCPCS: 93923 ==

== ENCOUNTER 2024-12-14 12:24 | Outpatient (CLI) | payer OTHER | END 2024-12-14 12:25 | disposition home or self-care (01) | LOC: BICULT 12:24 | PROVIDERS: ATTEND Nurse Practitioner Family | DX: I65.23 Occlusion and stenosis of bilateral carotid arteries (principal); M48.062 Spinal stenosis, lumbar region with neurogenic claudication; M96.1 Postlaminectomy syndrome, not elsewhere classified; F43.10 Post-traumatic stress disorder, unspecified; J43.9 Emphysema, unspecified; M79.604 Pain in right leg; M79.605 Pain in left leg; E11.65 Type 2 diabetes mellitus with hyperglycemia; R41.3 Other amnesia; R51.9 Headache, unspecified; E89.0 Postprocedural hypothyroidism; E78.5 Hyperlipidemia, unspecified; F17.210 Nicotine dependence, cigarettes, uncomplicated; J44.9 Chronic obstructive pulmonary disease, unspecified; I10 Essential (primary) hypertension; R63.4 Abnormal weight loss | CPT/HCPCS: 93880 ==